=== PATIENT | male | born 1990 | race Caucasian/White ===

== ENCOUNTER → 2017-01-07 | Outpatient (CLI) | payer BC ==
--- NOTE | 2017-01-07 12:50 | Diagnostic Imaging Report ---
Indication: SOB, cough Technique: 2 views of the chest Comparison: none. Findings: Lungs and pleural spaces are clear. Heart size is normal. Bones are unremarkable.. Impression: No acute process
== END | disposition home or self-care (01) ==
LOC: RAD 11:38
DX: R05 Cough (principal); R06.02 Shortness of breath
CPT/HCPCS: 71020